=== PATIENT | female | born 1930 | race Caucasian/White ===

== ENCOUNTER 2017-06-30 00:56 | Inpatient (IN) | payer MEDICARE ==
[2017-06-30] VITALS (17 sets, daily range): BP systolic 87–181; BP diastolic 34–72; PULSE 53–68; RESP 1–20; O2SAT 91–98
[~2017-06-30] VITALS: Ht 160 cm; Wt 63.0 kg
[~2017-06-30 00:56] MED LIST: AMLO-39 PO; CALC-743 PO; CARV12.5 PO; CHOL10002 PO; CITA20TA11 PO; FENT1PAT TOPICAL; FURO-128 PO; HYDR2TAB28 PO; HYDRALAZINE PO; LORA0.5T PO; LORA10TA73 PO; LOSA25TA2 PO; MULT-36 PO; OMEG1CAP5 PO; PANT20T PO; POTA20TA7 PO; UBID100C25 PO
--- NOTE | 2017-06-30 01:00 | ED.REPORT ---
HPI-Hip/Pelvis Prob/Inj Date of Service Jun 30, 2017 ED Provider: Roshan Lopez MD The pt is an 87 y/o female with a hx of HTN and spinal stenosis who presents to the ED via EMS from [facility] complaining of right hip pain, onset just prior to arrival. The pt was trying to transfer on to bed side commode when she fell and landed on her right hip. She denies hitting her head, headache, back pain, and abdominal pain. She was given 12mcg fentanyl en route, 4 Zofran and 4 morphine. Nursing Notes Stated Complaint: GLF R HIP PAIN Chief Complaint: Extremity Trauma Nursing Notes Reviewed: Yes Allergies: Coded Allergies: codeine (Verified Allergy, Severe, Hallucinations, 02/24/15) Sulfa (Sulfonamide Antibiotics) (Verified Allergy, Intermediate, Urinary retention, 02/24/15) Scheduled Amlodipine (Norvasc) 5 Mg Tablet 2.5 MG PO BID Calcium Carbonate/Vitamin D3 (Calcium 500 + Vit D 200 Caplet) 1 Each Tablet 1 EACH PO DAILY Carvedilol (Coreg) 12.5 Mg Tablet 12.5 MG PO BID Cholecalciferol (Vitamin D3) 1,000 Unit Tablet 1,000 UNIT PO BID Citalopram (Citalopram) 20 Mg Tablet 20 MG PO AM Fentanyl 12 mcg/hr (Duragesic 12 mcg/hr) 1 Patch Patch 1 PATCH TOPICAL Q3D Furosemide (Lasix) 40 Mg Tablet 40 MG PO DAILY Loratadine (Claritin) 10 Mg Tablet 10 MG PO Daily at 1600 Losartan Potassium (Cozaar) 25 Mg Tablet 50 MG PO BID Multivitamin (Daily Multiple Vitamin) 1 Each Tablet 1 EACH PO DAILY [place]-3 Fatty Acids/Fish Oil (Fish Oil 1,000 mg Capsule) 1 Each Capsule 1 EACH PO DAILY Pantoprazole DR (Protonix) 20 Mg Tablet 20 MG PO BID Potassium Chloride ER (Klor-Con M20) 20 Meq Tabsr 20 MEQ PO DAILY Ubidecarenone (Co Q-10) 100 Mg Capsule 100 MG PO BID Scheduled PRN ([hyDRALazine]) 10 MG TABLET 10 MG PO QID PRN PRN systolic >180, diastloic>95 Hydromorphone (Hydromorphone) 2 Mg Tablet 2 MG PO Q6 PRN PRN For Pain Lorazepam (Lorazepam) 0.5 Mg Tablet 0.5 MG PO Q6 PRN PRN For Anxiety General Time Seen by Provider: 00:59 Chief Complaint Hip injury right Hx Obtained From: Patient Arrived By: Ambulance Onset Occurred: Just prior to arrival Symptom Duration: Since onset Caused by: Fall on ground Location: Hip, R lateral aspect Quality: Painful Radiation: Does not radiate Severity: Current: Severe Severity: Maximum: Severe Recent Healthcare: No recent doctor visit Past Medical History Past Medical History Notes: Code status:DNR/DNI Past Medical History Macular degeneration Spinal stenosis 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 GI: Denies: Abdominal pain Physical Exam Initial Vital Signs Vital Signs (First) Date Time Temp Pulse Resp B/P Pulse Ox O2 Delivery O2 Flow Rate FiO2 06/30/17 00:59 36.7 54 16 169/58 96 Room Air Initial VS: Reviewed, Vital signs normal Head / Eyes: Atraumatic, Normocephalic Neck: Supple, Non-tender, Full range of motion Respiratory: Breath sounds normal, Clear to auscultation, No respiratory distress Cardiovascular: Regular rate & rhythm, Heart sounds normal, Intact distal pulses Abdomen / GI: Soft, Non-tender, No guarding, No rebound, No distention Upper Extremities: Vascular intact, Neuro intact, No swelling, No tenderness Skin: Warm, Dry, No cyanosis Neurologic: Alert, Oriented, Nonfocal Lower Extremity / Pelvis / MS: Atraumatic, No swelling, Neurologic intact, Vascular intact Right Hip: Positive: Tenderness present... (Moderate) Right leg shortened. General/Constitutional: Awake, Alert, Cooperative Interpretation & Diagnostics Lab Results Interpretation Result Diagram: 06/30/175 06/30/17134 Test 06/30/17 01:35 White Blood Count 7.3th/mm3 (3.8-10.1) Red Blood Count 3.93mil/mm3 (3.90-5.20) Hemoglobin 13.1g/dL (12.0-15.6) Hematocrit 38.0% (35.0-46.0) Mean Corpuscular Volume 96.7fL (81-100) Mean Corpuscular Hemoglobin 33.3pg (27.0-35.0) Mean Corpuscular Hemoglobin Concent 34.5% (32.0-37.0) Red Cell Distribution Width 13.0% (12.3-15.4) Platelet Count 236bil/L (150-400) Neutrophils (%) (Auto) 56.8% (40-74) Lymphocytes (%) (Auto) 30.7% (14-46) Monocytes (%) (Auto) 8.9% (4-12) Eosinophils (%) (Auto) 2.7% (0-5) Basophils (%) (Auto) 0.5% (0-3) Hold Purple Top Tube Received (Received) Hold Blue Top Tube Received (Received) Sodium Level 132mEq/L (134-144) Potassium Level 4.6mEq/L (3.5-5.2) Chloride Level 91mEq/L (97-108) Carbon Dioxide Level 28mmol/L (18-29) Blood Urea Nitrogen 33mg/dL (8-27) Creatinine 1.02mg/dL (0.57-1.00) Estimat Glomerular Filtration Rate 73mL/min (>59) Glucose Level 127mg/dL (60-99) Calcium Level 9.6mg/dL (8.5-10.1) Magnesium Level 2.2mg/dL (1.6-2.6) Total Bilirubin 0.5mg/dL (0.0-1.2) Aspartate Amino Transf (AST/SGOT) 16U/L (0-50) Alanine Aminotransferase (ALT/SGPT) 10U/L (0-32) Alkaline Phosphatase 68U/L (25-165) Total Protein 7.3g/dL (6.4-8.4) Albumin 4.4g/dL (3.4-5.0) Hold [place] Top Tube Received (Received) Lab values outside NL range: no clinical significance. X-Ray Chest Interpretation Chest Xray Interpretation: Normal View: Portable, 1 view Interpretation / Wet Read by: Wet read ED physician X-Ray Interpretation Xray Interpretation: Intertrochanteric fracture X-Ray Ordered: Hip right Interpretation / Wet Read by: Wet read ED physician Re-Eval/Medical Decision Med Decision/Clinical Course 87-year-old female with an apparent mechanical fall while transferring with a fractured right hip. She has minimal comorbidities. There is no evidence at this time of infection as a cause of fall. She will be admitted to the hospitalist service with orthopedic surgical consultation. Re-Evaluation/Progress : Time of Eval: 02:59 Re-Evaluation/Progress Note: Rechecked pt. Discussed lab results, imaging results,diagnosis and plan to admit for a surgery tomorrow. Pt understands and agrees with the plan for admission. All questions addressed. Consultation #1: Referral / Consult Name: Xavi Reynolds DO Consulted With: Orthopedic Call Returned at: 01:42 Research Program Manager: Will see patient, Agrees with eval, Agrees with plan Note: Dr. Reynolds recommends pt stay NPO for surgery tomorrow morning. Consultation #2: Referral / Consult Name: Gale Joshi DO Consulted With: Hospitalist Call Returned at: 02:43 Research Program Manager: Will see patient, Agrees with eval, Agrees with plan, Accepts admit Counseled Regarding: Diagnosis, Lab results, Need for admission Discharge & Departure Impression: Primary Impression: Trochanteric fracture of right femur Encounter type: initial encounter Fracture type: closed Qualified Code: S72.101A - Unspecified trochanteric fracture of right femur, initial encounter for closed fracture Disposition: ADMITTED TO HOSPITAL Referrals: Kiara Beckman PA-C (PCP) Scribe Attestation Portions of this note were transcribed by Charlette Santana. I,, personally performed the history,physical exam and medical decision-making;I reviewed and confirmed the accuracy of the information in the transcribed note. Signed by Selene Rahman. 06/30/17 copies to: Kiara Beckman PA-C, Howard L MD Jun 30, 2017 01:00 Charlette Santana Jun 30, 2017 01:06
[2017-06-30 01:55] LABS: BASOPHILS % (AUTO) 0.5 % (0-3); EOSINOPHILS % (AUTO) 2.7 % (0-5); MONOCYTES % (AUTO) 8.9 % (4-12); Mean Corpuscular Hemoglobin 33.3 pg (27.0-35.0); Mean Corpuscular Volume 96.7 fL (81-100); NEUTROPHILS % (AUTO) 56.8 % (40-74); Platelet Count 236 bil/L (150-400)
[2017-06-30] MEDS: fentaNYL-PF 50 mCg/mL 2 mL Inj IVPUSH PRN ×6 (01:55→20:30)
[2017-06-30 02:14] LABS: Magnesium 2.2 mg/dL (1.6-2.6)
[2017-06-30 02:24] LABS: APPEARANCE,URINE CLOUDY (CLEAR,HAZY); COLOR,URINE YELLOW (YELLOW); OCCULT BLOOD,URINE NEGATIVE (NEGATIVE); UROBILINOGEN,URINE NORMAL (NORMAL)
[2017-06-30] MEDS ORDERED: Ondansetron 2 mg/mL 2 mL Inj IVPUSH PRN ×3 (02:45→15:10)
--- NOTE | 2017-06-30 04:02 | PCM.HPMED ---
Subjective Date of Service Jun 30, 2017 Primary Provider: Admitting Physician: Gale Joshi DO Primary Care Physician: Kiara Beckman PA-C Attending Physician: Gale Joshi DO Admit Status: From the Emergency Department Chief Complaint: Right hip pain History of Present Illness: Patient is an 87-year-old female that presented to the emergency room to the emergency department via EMS after falling and hitting her hip. She has a history of hypertension, spinal stenosis. Patient presented to the emergency department after a ground-level fall while getting up to use her bedside commode. She denies hitting her head but admits to falling on her right hip. She was assisted off of the floor. She has a distant history of fractured toe and fractured nose and no known history of osteoporosis. Patient states that she has had previous surgeries and responded poorly to one of the medications used approximately 50 years ago. She states that they "had trouble waking her up" but denies any hyperthermia. Patient is uncertain as to what medication it was. Patient denies headache, sudden change in vision, abdominal pain, numbness, paresthesias Review of Systems: Complete ROS was performed and pertinent positives and negatives included in the history of present illness. All other findings were negative. Allergies Coded Allergies: codeine (Verified Adverse Reaction, Severe, Hallucinations, 06/30/17) Sulfa (Sulfonamide Antibiotics) (Verified Adverse Reaction, Intermediate, Urinary retention, 06/30/17) Home Medications Amlodipine (Norvasc) 5 Mg Tablet 2.5 MG PO BID Calcium Carbonate/Vitamin D3 (Calcium 500 + Vit D 200 Caplet) 1 Each Tablet 1 EACH PO DAILY Carvedilol (Coreg) 12.5 Mg Tablet 12.5 MG PO BID Cholecalciferol (Vitamin D3) 1,000 Unit Tablet 1,000 UNIT PO BID Citalopram (Citalopram) 20 Mg Tablet 20 MG PO AM Fentanyl 12 mcg/hr (Duragesic 12 mcg/hr) 1 Patch Patch 1 PATCH TOPICAL Q3D Furosemide (Lasix) 40 Mg Tablet 40 MG PO DAILY Loratadine (Claritin) 10 Mg Tablet 10 MG PO Daily at 1600 Losartan Potassium (Cozaar) 25 Mg Tablet 50 MG PO BID Multivitamin (Daily Multiple Vitamin) 1 Each Tablet 1 EACH PO DAILY [place]-3 Fatty Acids/Fish Oil (Fish Oil 1,000 mg Capsule) 1 Each Capsule 1 EACH PO DAILY Pantoprazole DR (Protonix) 20 Mg Tablet 20 MG PO BID Potassium Chloride ER (Klor-Con M20) 20 Meq Tabsr 20 MEQ PO DAILY Ubidecarenone (Co Q-10) 100 Mg Capsule 100 MG PO BID ([hyDRALazine]) 10 MG TABLET 10 MG PO QID PRN PRN systolic >180, diastloic>95 Hydromorphone (Hydromorphone) 2 Mg Tablet 2 MG PO Q6 PRN PRN For Pain Lorazepam (Lorazepam) 0.5 Mg Tablet 0.5 MG PO Q6 PRN PRN For Anxiety PMH Macular degeneration Spinal stenosis 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 Nontender sinuses, no nasal discharge. CV: Regular rate and rhythm, no murmurs, gallops, or rubs appreciated RESP: Clear to auscultation bilaterally, no wheezes or rhonchi appreciated ABD: Bowel sounds normal, nondistended, no tenderness to palpation EXT: Trace edema bilateral foot. LYMPH: No cervical lymphadenopathy NEURO: Symmetric face, cranial nerves grossly intact, strength intact bilaterally upper and lower extremities, sensation to light touch intact bilaterally upper and lower extremities. PSYCH: Oriented 4. Linear and appropriate conversation. Skin: Ecchymosis on dorsal aspect of left foot, ecchymosis on right yoo. Lab and Diagnostics Result Diagram: 06/30/1713406/30/17134 Assessment & Plan Patient is an 87-year-old female presenting with right femur fracture post ground level fall 1. Closed right femur fracture, present upon admission and ongoing - X-ray imaging demonstrates closed right femur fracture. Orthopedic consult made, patient will have surgery later today - Nothing by mouth for surgery preparation - Pain control with fentanyl -Continue Coreg, but hold all other home medications 2. Hypertension -Patient has multiple home medications to manage hypertension. With pending surgery, hold all medications other than Coreg. depression - continue citalopram Patient is admitted as inpatient, she is expected to spend greater than 2 midnights Pain Evaluation: Adequate Pain Control GI Prophylaxis: Not indicated VTE Prophylaxis Indicated: Contraindicated (scheduled for surgery today) Resuscitation Status: Limited Interventions (patient would like resuscitation attempted and temporary intubation) Attending Statement The patient was seen and examined together with house staff on 06/30/2017 and I have added additional information to the note above. Lotus Love DO Jun 30, 2017 04:02 Gale Joshi DO Jun 30, 2017 06:52
[2017-06-30] MEDS ORDERED: Polyethylene Glycol (PEG) 17 Gm Powder PO PRN (04:15)
[2017-06-30] MEDS ORDERED: UBID100C27 PO (04:26)
[2017-06-30] MEDS: Dextrose 5% 0.45% NaCl 1,000 ML IV SCH ×3 (04:47→22:43)
--- NOTE | 2017-06-30 06:00 | NUR ---
Admit Patient arrived to floor from ED at 0305. Patient A&OX3. Wilkins catheter patent and draining to gravity. Vitals stable. Peripheral IV in right AC patent. Report given by Kavita METZ. Care continues.
[2017-06-30] MEDS ORDERED: Glycopyrrolate 0.2 MG/ML 1mL Inj ONE (07:11)
[2017-06-30] MEDS ORDERED: fentaNYL-PF 50 mCg/mL 2 mL Inj ONE (07:11)
[2017-06-30] MEDS ORDERED: Phenylephrine/NS 100 mCg/mL 10 mL Syringe IVPUSH ONE (07:11)
[2017-06-30] MEDS ORDERED: Rocuronium 10 mg/mL 5 mL Inj ONE (07:11)
[2017-06-30] MEDS ORDERED: Ondansetron 2 mg/mL 2 mL Inj ONE (07:11)
[2017-06-30] MEDS ORDERED: Dexamethasone 4 mg/mL Inj ONE (07:11)
[2017-06-30] MEDS ORDERED: Neostigmine 1 mg/mL 10 mL Inj ONE (07:11)
[2017-06-30] MEDS ORDERED: Propofol 10,000 mCg/mL 20 mL Inj ONE (07:11)
[2017-06-30] MEDS ORDERED: EPHEDrine/NS 5 mg/mL 5 mL Syringe ONE (07:11)
--- NOTE | 2017-06-30 08:10 | DRSVH ---
PROCEDURE: X-RAY PELVIS W/LAT HIP (RT) ([id number]) INDICATIONS: fall, hip pain TECHNIQUE: AP pelvis with lateral view(s) of the right hip(s). COMPARISON: None. FINDINGS: Bones: Intertrochanteric right femur fracture is noted. Right femur fracture is displaced proximally and is in varus angulation. Soft tissues: The visualized bowel gas pattern is normal. No suspicious soft tissue calcifications. IMPRESSION: Intertrochanteric right femur fracture. Dictated by: Tiffanie Conrad MD, PhD on 06/30/2017 at 8:07 Approved by: Tiffanie Conrad MD, PhD on 06/30/2017 at 8:08
--- NOTE | 2017-06-30 08:28 | DRSVH ---
PROCEDURE: X-RAY CHEST ONE VIEW, PORTABLE ([id number]) INDICATIONS: preop hip TECHNIQUE: One view of the chest was acquired. COMPARISON: [facility], CT, CT CHEST WO CONTRAST, 11/24/2016, 9:52 AM. [facility], CT, CHEST W/O CONTRAST, 09/13/2015, 12:08. [facility], CR, CHEST 1VW (PORTABLE ), 02/24/2015, 13:09. FINDINGS: Surgical changes and devices: None. Lungs and pleura: No pleural effusions or pneumothorax. Lungs are clear no acute opacities. Small n odular densities in the lungs bilaterally not significantly changed compared to prior examinations. Mediastinum: Mediastinal contours appear normal. Heart size is normal. Bones and chest wall: No suspicious bony lesions. Overlying soft tissues appear unremarkable. IMPRESSION: No acute cardiopulmonary disease process. Dictated by: Tiffanie Conrad MD, PhD on 06/30/2017 at 8:25 Approved by: Tiffanie Conrad MD, PhD on 06/30/2017 at 8:27
[2017-06-30] MEDS ORDERED: FENT1PAT6 TRANSDERM (08:31)
[2017-06-30] MEDS ORDERED: ZYL100 PO (08:31)
[2017-06-30] MEDS ORDERED: MULT-1018 PO (08:31)
[2017-06-30] MEDS ORDERED: CALC-72 PO (08:31)
[2017-06-30] MEDS ORDERED: OMEG-38 PO (08:31)
--- NOTE | 2017-06-30 10:28 | PCM.HPANE ---
Patient Data Surgeon Admitting Provider:Gale Joshi DO Attending Provider:Gale Joshi DO Primary Care Physician:Kiara Beckman PA-C Other Provider:Shirley Alvarado Anesthesia Reason for Visit R Intertrochanteric Hip Fracture Ht/WT & BMI Height (Feet): 5 Height (Inches): 3.00 Weight (Kilograms): 58.500 Body Mass Index 22.85 Allergies Coded Allergies: codeine (Verified Adverse Reaction, Severe, Hallucinations, 06/30/17) Sulfa (Sulfonamide Antibiotics) (Verified Adverse Reaction, Intermediate, Urinary retention, 06/30/17) Past Anesthesia History Anesthesia History: Denies:: Anesthesia Reactions Diabetes History Hx Diabetes?: No Current Bedside Blood Glucose: 154 MRSA MRSA: No Medications Active Scripts Potassium Chloride ER (Klor-Con M20)20 Meq Tabsr20 Meq PO DAILY 30 Days Prov:Betancourt,Tahmina L DO 02/27/15 Amlodipine (Norvasc)5 Mg Tablet2.5 Mg PO BID 30 Days Prov:Betancourt,Tahmina L DO 02/27/15 Furosemide (Lasix)40 Mg [place]ukagy03 Mg PO DAILY 30 Days Prov:Betancourt,Tahmina L DO 02/27/15 Carvedilol (Coreg)12.5 Mg Kevnkj05.5 Mg PO BID 30 Days Prov:Betancourt,Tahmina L DO 02/27/[address] (Protonix)20 Mg Mlnqkt37 Mg PO BID 30 Days Prov:Betancourt,Tahmina L DO 02/27/15 Losartan Potassium (Cozaar)25 Mg Hsummr19 Mg PO BID 30 Days Prov:Betancourt,Tahmina L DO 02/27/15 Reported Medications Calcium Carbonate/Vitamin D3 (Calcium 500 + Vit D 200 Tablet)1 Each Tablet1 Each PO 06/30/17 [place]-3/Dha/Epa/Fish Oil (Fish Oil 1,000 mg Softgel)1 Each Capsule1 Each PO 06/30/17 Multivitamin (Multi Vitamin Daily)1 Each Tablet1 Each PO DAILY 30 Days Ref 0 06/30/17 Fentanyl 12.5 mcg/hr Patch 1 Each Patch.td721 Patch TRANSDERM Q3D Ref 0 06/30/17 Allopurinol 100 Mg [id number] Mg PO DAILY Ref 0 06/30/17 Ubidecarenone (Co Q10)100 Mg Rezceie521 Mg PO BID 06/30/17 Lorazepam 0.5 Mg Tablet0.5 Mg PO Q6 PRN For Anxiety 02/24/15 Citalopram 20 Mg Pqkcqf89 Mg PO AM 02/24/15 Discontinued Reported Medications Loratadine (Claritin)10 Mg Vdxrcu83 Mg PO Daily at 1600 02/24/15 Cholecalciferol (Vitamin D3)1,000 Unit Tablet1,000 Unit PO BID 01/17/15 Multivitamin (Daily Multiple Vitamin)1 Each Tablet1 Each PO DAILY 01/17/15 [place]-3 Fatty Acids/Fish Oil (Fish Oil 1,000 mg Capsule)1 Each Capsule1 Each PO DAILY 01/17/15 Ubidecarenone (Co Q-10)100 Mg Tzyxlsi368 Mg PO BID 01/17/15 Calcium Carbonate/Vitamin D3 (Calcium 500 + Vit D 200 Caplet)1 Each Tablet1 Each PO DAILY 01/17/15 Discontinued Scripts Hydromorphone 2 Mg Tablet2 Mg PO Q6 PRN For Pain #15 TABLET Prov:Tahmina Betancourt L DO 02/27/15 Fentanyl 12 mcg/hr (Duragesic 12 mcg/hr)1 Patch Patch1 Patch TOPICAL Q3D #2 Prov:BetancourtTahmina L DO 02/27/15 [hyDRALazine] (Apresoline)10 MG TABLET No Conflict Check10 Mg PO QID PRN systolic >180, diastloic>95 #10 TABLET Prov:Betancourt,Tahmina L DO 02/27/15 History History of ENT Problems?: Yes HEENT History: Positive for:: Glaucoma Sinus Problem Denies:: Cataracts Dysphagia Denture Type: Full- Upper Full- Lower Teeth Condition: No Teeth Hx of Heart Problems?: No Cardiovascular History: Positive for:: Edema (Ankles swelling) Hypertension Denies:: Cardiac Surgery Chest Pain Congestive Heart Failure ("They told me I might have.") Heart Murmur Irregular Heartbeat Pacemaker Thrombophlebitis Hx of Respiratory Problem?: No Respiratory History: Positive for:: Dyspnea Denies:: Asthma COPD Chest Surgery Emphysema Hemoptysis Pneumonia Tuberculosis Hx Neurologic Problems?: Yes Neurological History: Positive for:: Dizziness Denies:: Alzheimer's Disease CVA Dementia Headaches Parkinson's Disease Seizures Hx of GI Problems?: Yes Gastrointestinal History: Positive for:: Hiatal Hernia Hx of Problems?: No Genitourinary History: Positive for:: Urinary Tract Infection Denies:: HX of Hemodialysis Kidney Stones HX of Peritoneal Dialysis: No Female Hx: Denies:: Currently Endometriosis Pelvic Inflammatory Problems with Breasts? Hx Musculoskeletal Problems?: Yes Musculoskeletal History: Denies:: Back Injury Joint Replacement Musculoskeletal Trauma Hx of Psycho/Social Problems?: Yes Psycho Social History: Positive for:: Anxiety (On Ativan as needed) Hx Depression (on Citalopram) Denies:: Bipolar Disorder Suicide Attempt Hx Surgeries?: Yes (Appendectomy, R. carotid endarectomy, cataract repair, back surgery) Hx Any Other Health Problems?: No Other History: Positive for:: Hospitalization Denies:: Cancer Thyroid Disease History Blood Transfusions: Positive for:: Accept Blood Products? Denies:: Blood Transfuse Reaction Blood Transfusions Hx Diabetes: NoBedside Blood Glucose: 154 Hx Alcohol Use: NoHx Substance Use: No Smoking Status: Former Smoker Have You Smoked inLast 12 mo: No Stop/Bang Treated for Sleep Apnea?: No Do You Have a CPAP Machine?: No S-Snoring: Do You Snore Loudly: Yes T-Tired: feel tired, fatigued: No O-Obsered: Observed not breath: No P-Blood Pressure: treated: Yes B- Body Mass Index > 35 kg/m2: No A- Age over 50: Yes N- Neck Large Circumference: No G- Gender Male: No JOSH Total Score: 2 Risk Assessment Category Category 1A: Patient has history of documented sleep apnea, and HAS NOT received any narcotic, sedative or anesthesia administration during this stay. Category 1B: Patient has history of documented sleep apnea, and HAS received any narcotic , sedative or anesthesia administration during this stay Category 2: Patient has SUSPECTED Obstructive Sleep Apnea, and HAS received any narcotic , sedative or anesthesia administration during this stay. Category 3: Patient has SUSPECTED Obstructive Sleep Apnea and HAS NOT received narcotic, sedative or anesthesia administration during this stay. Category 4: Outpatient in Procedural Areas with known sleep apnea or who screen positive for High Risk via the STOP/BANG questionnaire. Exam Exam Vital Signs Vital Signs Date Time Temp Pulse Resp B/P Pulse Ox O2 Delivery O2 Flow Rate FiO2 06/30/17 08:28 57 124/64 06/30/17 05:30 36.6 59 18 181/72 95 Room Air 06/30/17 03:12 53 18 129/51 91 Room Air 06/30/17 03:05 36.8 53 18 179/67 93 Room Air General Appearance: Alert, Oriented X3, Cooperative, No Acute Distress HEENT/AIRWAY: MP 1 Lungs: Normal Air Movement Heart: Regular Rate/Rhythm Meds/Labs/Diagnostics Admission Meds Current Medications Dextrose/Sodium Chloride (D5 1/2 Normal Saline) 1,000 ml @ 100 mls/hr Q10H IV Last administered on 06/30/17t 04:47; Start 06/30/17 at 02:43 Bedside Blood Glucose: 154 Labs Test 06/30/17 01:35 06/30/17 02:16 White Blood Count 7.3th/mm3 (3.8-10.1) Red Blood Count 3.93mil/mm3 (3.90-5.20) Hemoglobin 13.1g/dL (12.0-15.6) Hematocrit 38.0% (35.0-46.0) Mean Corpuscular Volume 96.7fL (81-100) Mean Corpuscular Hemoglobin 33.3pg (27.0-35.0) Mean Corpuscular Hemoglobin Concent 34.5% (32.0-37.0) Red Cell Distribution Width 13.0% (12.3-15.4) Platelet Count 236bil/L (150-400) Neutrophils (%) (Auto) 56.8% (40-74) Lymphocytes (%) (Auto) 30.7% (14-46) Monocytes (%) (Auto) 8.9% (4-12) Eosinophils (%) (Auto) 2.7% (0-5) Basophils (%) (Auto) 0.5% (0-3) Hold Purple Top Tube Received (Received) Hold Blue Top Tube Received (Received) Sodium Level 132mEq/L (134-144) Potassium Level 4.6mEq/L (3.5-5.2) Chloride Level 91mEq/L (97-108) Carbon Dioxide Level 28mmol/L (18-29) Blood Urea Nitrogen 33mg/dL (8-27) Creatinine 1.02mg/dL (0.57-1.00) Estimat Glomerular Filtration Rate 73mL/min (>59) Glucose Level 127mg/dL (60-99) Calcium Level 9.6mg/dL (8.5-10.1) Magnesium Level 2.2mg/dL (1.6-2.6) Total Bilirubin 0.5mg/dL (0.0-1.2) Aspartate Amino Transf (AST/SGOT) 16U/L (0-50) Alanine Aminotransferase (ALT/SGPT) 10U/L (0-32) Alkaline Phosphatase 68U/L (25-165) Total Protein 7.3g/dL (6.4-8.4) Albumin 4.4g/dL (3.4-5.0) Hold [place] Top Tube Received (Received) Urine Color Yellow (YELLOW) Urine Appearance Cloudy (CLEAR,HAZY) Urine pH 6.0 (5.0-8.0) Urine Specific Denio 1.010 (1.003-1.035) Urine Protein Negativemg/dL (NEG,TRACE) Urine Glucose (UA) Negativemg/dL (NEGATIVE) Urine Ketones Negativemg/dL (NEGATIVE) Urine Occult Blood Negative (NEGATIVE) Urine Nitrite Negative (NEGATIVE) Urine Bilirubin Negative (NEGATIVE) Urine Urobilinogen Normalmg/dL (NORMAL) Urine Leukocyte Esterase Small (NEGATIVE) Urine RBC 0-2/hpf (0-2) Urine WBC 0-5/hpf (0-5) Urine Epithelial Cells Occasional/hpf (NONE-MOD) Urine Crystals None seen (NONE SEEN) Urine Bacteria Many/hpf (NONE-FEW) Urine Hyaline Casts None/lpf (NONE) Urine Granular Casts None seen (NONE SEEN) Urine Waxy Casts None seen (NONE SEEN) Urine Red Blood Cell Casts None seen (NONE SEEN) Urine White Blood Cell Casts None seen (NONE SEEN) Urine Mucus None seen (None Seen) Urine Trichomonas None seen (NONE SEEN) Urine Yeast None (NONE SEEN) Urinalysis Comment None Urine Culture Reflexed Indicated Plan Impression Patient chart reviewed, patient interviewed and anesthestic plan with risks, benefits, and alternatives discussed, and informed consent obtained. NPO per Anesth. Guidelines: Yes ASA Physical Status: ASA2 Mod Systemic Disease Anesthetic Plan: GA Bene/Risks/Altern/Consents: Yes HP Complete Prior to Induction: Yes Robert Menezes MD Jun 30, 2017 10:28
--- NOTE | 2017-06-30 12:45 | NUR ---
Transfer to OR Patient picked up by [facility] x 2 @ 1245. Pain controlled, remained NPO except sips w/ po meds x 3. SL x 1. Wilkins emptied before transfer. RA. Son at bedside upon transfer.
[2017-06-30] MEDS ORDERED: Lactated Ringer's 1,000 ML IV SCH (13:04)
[2017-06-30] MEDS ORDERED: Lactated Ringer's 500 ML IV PRN (13:04)
[2017-06-30] MEDS ORDERED: EPHEDrine Sulfate 50 mg/mL Inj IVPUSH PRN (13:05)
[2017-06-30] MEDS ORDERED: HYDROmorphone 1 mg/mL Inj IVPUSH PRN (13:05)
[2017-06-30] MEDS ORDERED: Phenylephrine 10,000 mCg/mL Inj IVPUSH PRN (13:05)
[2017-06-30] MEDS ORDERED: Dexamethasone 4 mg/mL Inj IVPUSH PRN (13:05)
[2017-06-30] MEDS ORDERED: fentaNYL-PF 50 mCg/mL 2 mL Inj IVPUSH PRN (13:05)
[2017-06-30] MEDS ORDERED: Bupivacaine Liposome 1.3% 20 mL Inj ONE (13:12)
[2017-06-30] MEDS ORDERED: Bupivacaine-MPF 0.25% 30 mL Inj INFILTRATE ONE (13:48)
[2017-06-30] MEDS ORDERED: Bupivacaine Liposome 1.3% 20 mL Inj INFILTRATE ONE (13:48)
[2017-06-30] MEDS ORDERED: Sodium Chloride Bacteriostatic 30 mL Inj INJ ONE (13:48)
[2017-06-30] MEDS ORDERED: Sodium Chloride LOK Flush 10 mL Syringe IVFLUSH ONE (14:08)
[2017-06-30] MEDS ORDERED: diphenhydrAMINE 25 mg Capsule PO PRN (15:10)
[2017-06-30] MEDS ORDERED: Magnesium Hydroxide 10 mL Oral Concentration PO PRN (15:10)
[2017-06-30] MEDS: 0.9% Sodium Chloride 1,000 ML IV SCH ×2 (15:10→17:09)
--- NOTE | 2017-06-30 15:25 | PCM.ANEP1 ---
Post Anesthesia PACU Phase 1 Assessment Vital Signs Vital Signs Date Time Temp Pulse Resp B/P Pulse Ox O2 Delivery O2 Flow Rate FiO2 06/30/17 15:20 56 20 92/43 94 Room Air 06/30/17 15:15 60 19 98/43 96 Simple Mask 8 06/30/17 15:09 36.8 63 16 101/34 98 Simple Mask 8 06/30/17 10:53 37.2 62 16 129/63 94 Room Air 06/30/17 08:28 57 124/64 Anesthetic Administered: GA Level of Alertness: Sleepy, easy to arouse Pain: No Pain Scale Score: 5 Nausea or Vomiting: No CV Function & Hydration Stable: Yes Airway Device: None Oxygen Delivery: Simple Mask Lungs: Normal Air Movement PACU Phase 2 Assessment Complications: No Follow up Care: N/A Patient Instructions Provided: N/A Robert Menezes MD Jun 30, 2017 15:25
--- NOTE | 2017-06-30 15:32 | NUR ---
Social Work: Brief Note SW visited patient's room in an attempt to complete initial assessment. Patient is an 87 year old female who is on day 1 of hospitalization for right intertrochanteric hip fracture per H&P. Patient has [facility] [place] Medicare and her PCP is Dr. Kiara Beckman PA-C. EMR reviewed. SW was unable to complete initial assessment. Patient was not in room due to having left for surgery. No family is at bedside. SW will revisit patient at a later time. AD Linder
[2017-06-30] MEDS ORDERED: Acetaminophen IV 1,000 MG in IV Premix 1 EACH IV ONE (15:35)
--- NOTE | 2017-06-30 15:56 | CONS ---
[address] [address] CONSULTATION REPORT PATIENT: MARQUES VELA : 1930 MR#: [id number] ADMIT: 06/30/2017 JOB ID: [id number] DATE OF SERVICE: 06/30/2017 ORTHOPEDIC CONSULTATION: CHIEF COMPLAINT: Right hip pain. HISTORY OF PRESENT ILLNESS: The patient is an 87-year-old female, who normally ambulates with a walker or power chair. Has difficulty with balance and fell while getting up from the bedside commode striking her right hip. She was unable to walk after the fall and had immediate onset of pain which was sharp into the hip. She also complains of weakness in bilateral lower extremities due to longstanding spine problems and spinal stenosis. PAST MEDICAL HISTORY: Is significant for hypertension and chronic pain secondary to her back as well as osteoarthritis and macular degeneration. PAST SURGICAL HISTORY: Appendectomy, tonsillectomy. SOCIAL HISTORY: The patient is an assisted-living resident. Blood pressure 129/63, pulse rate 62, respirations 16, temperature 37.2. She is alert and cooperative, in no acute distress. Her right hip skin is intact. She has pain with any movement of the hip. The right lower extremity is short and externally rotated. Her feet are both warm, pink and well perfused with posterior tibial pulse +2. No calf pain or tenderness. LABORATORY: Hemoglobin 13.1. IMAGING: X-rays demonstrate a right intertrochanteric hip fracture with reverse obliquity and comminution. ASSESSMENT: Right reverse obliquity comminuted intertrochanteric fracture. PLAN: We discussed treatment options for this and she would like to proceed with a right hip nailing and will plan for this later today. Will plan to use a fentanyl DOCTOR OF NURSE ANESTHESIA as the patient has very difficult time with other narcotic pain medications. Plan to use Lovenox for DVT prophylaxis.
--- NOTE | 2017-06-30 16:10 | OP ---
[address] [address] OPERATIVE REPORT PATIENT: MARQUES VELA : 1930 MR#: [id number] ADMIT: 06/30/2017 JOB ID: [id number] DATE OF SURGERY: 06/30/2017 PREOPERATIVE DIAGNOSIS(ES): Right intertrochanteric hip fracture. POSTOPERATIVE DIAGNOSIS(ES): Right intertrochanteric hip fracture. PROCEDURE: Right hip intramedullary nailing. SURGEON: Xavi Reynolds D.O. ANESTHESIA: General. INDICATIONS: The patient is an 87-year-old female who fell when she tipped backwards when trying to get off the bedside commode. She normally ambulates with a walker or uses a power chair and has had problems with balance and dizziness. She was unable to ambulate after the fall. We discussed treatment options for this and she wished to proceed with a right hip intramedullary nailing, which was my recommendation. We discussed the risks, benefits, and possible complications of surgery. All questions were answered and she wished to proceed. PROCEDURE IN DETAIL: The patient was brought to the operating room. She was given a preoperative antibiotic and general anesthetic. She was placed onto the fracture table and the fracture was reduced with the combination of traction, internal rotation, abduction. The right lower extremity was sterilely prepped and draped. An incision was made about three fingerbreadths above the level of the greater trochanter in line with the femur. Dissection was carefully carried through subcutaneous tissue and the iliotibial band was incised in line with the skin incision. A guidewire was placed into the tip of the trochanter and then advanced into the intramedullary femur. This was then over-reamed with the opening reamer and then a ball-tipped guidewire was placed into the femur. This was reamed up to 13.5 mm and placed a 380 x 12 mm 130 degree Synthes TFNA nail. There was some displacement of the calcar and an incision was made for the lag screw insertion and I placed a bone hook onto the calcar in order to help reduce the fracture. However, it did not reduce very well, but with some pressure over the lateral femur, the fracture reduced reasonably well and I placed a guide pin for a lag screw into the center-center position of the femoral head. The lag screw was then reamed and inserted and had excellent fixation. A set screw was placed and then backed off by half a turn. I then placed two distal locks. I felt that the fracture had reverse obliquity and best served with a long nail and distal interlocks. Using a perfect bear river type technique, these were placed percutaneously, the first having somewhat marginal fixation. Therefore, I placed a second distal lateral locking screw having good fixation in her fairly poor osteoporotic bone. The wounds were then irrigated and closed with 0 Vicryl to close the fascia and 2-0 to close the subcu. The skin was closed with jarod. Fluoroscopy was used to confirm final placement and sterile dressings were applied. The patient tolerated the procedure well. Blood loss was 180 cc. POSTOPERATIVE PROTOCOL: Have the patient remain partial weightbearing on the right lower extremity for a period of six weeks and will plan to use Lovenox for DVT prophylaxis.
--- NOTE | 2017-06-30 16:57 | NUR ---
spiritual care: pt request brief conversational visit and caring shipping packer visit. pt reported getting better, being woozy with medications and that she is appreciative of her family and a medical plan. anticipating healing process. Addendum: 06/30/17 at 1701 by MORE BENNETT CM above note correction: pt did not receive caring shipping packer visit, rather was agreeable for eucharistic can slider visit (yazdanism) tomorrow following her surgery.
[2017-06-30] MEDS: Sodium Chloride LOK Flush 10 mL Syringe IV SCH (17:09)
--- NOTE | 2017-06-30 17:19 | NUR ---
Return from OR Patient transported back to room at 1615, O x 3, SL, 2L NC, vitals stable. Right hip dressing c/d/i, ice on site, NS @ 100ml/hr started, fentanyl patch placed on left posterior shoulder area. Pain 2/10. Son at the bedside. Tolerated clear liquids w/ no nausea, currently ordering a light dinner.
[2017-06-30] MEDS: Alum-Mag Hydrox-Simeth 30 mL Suspension PO PRN (20:28)
[2017-06-30] MEDS: Senna-Docusate 8.6-50 mg Tablet PO SCH (20:30)
[2017-06-30] MEDS ORDERED: CeFAZolin Inj 2 GM in IV Premix 1 EACH IV SCH (22:00)
[2017-06-30] MEDS: CeFAZolin Inj 2 GM in IV Premix 1 EACH IV SCH (23:03)
[2017-07-01 00:15] VITALS: BP 120/57; PULSE 65; RESP 18; O2SAT 93
[2017-07-01] MEDS: Sodium Chloride LOK Flush 10 mL Syringe IV SCH ×3 (00:30→16:30)
--- NOTE | 2017-07-01 03:34 | NUR ---
Activity Pt with many questions regarding discharge planning. Answered what could and assured SS would see her and be able to answer more. Pt rates pain is 5-6/10, rec'd IV fentanyl per prn orders. Repositioning done with rounds. Wilkins catheter patent to gravity, Pt passing gas. Refused to keep scd's on but able to move left leg and right feet. +CMS. Call light in reach, bed in low. Care continues
[2017-07-01] MEDS: 0.9% Sodium Chloride 1,000 ML IV SCH (04:06)
[2017-07-01 04:30] VITALS: BP 111/57; PULSE 61; RESP 18; O2SAT 97
[2017-07-01] MEDS: CeFAZolin Inj 2 GM in IV Premix 1 EACH IV SCH ×3 (05:30→21:32)
[2017-07-01 06:19] LABS: BASOPHILS % (AUTO) 0.1 % (0-3); EOSINOPHILS % (AUTO) 0 % (0-5); MONOCYTES % (AUTO) 13.7 % (4-12); Mean Corpuscular Hemoglobin 33.9 pg (27.0-35.0); Mean Corpuscular Volume 99.1 fL (81-100); NEUTROPHILS % (AUTO) 77.1 % (40-74); Platelet Count 141 bil/L (150-400)
[2017-07-01] MEDS: fentaNYL-PF 50 mCg/mL 2 mL Inj IVPUSH PRN (08:22)
[2017-07-01] MEDS: Senna-Docusate 8.6-50 mg Tablet PO SCH ×2 (08:23→21:31)
[2017-07-01 08:51] VITALS: BP 115/60; PULSE 62; RESP 16; O2SAT 94
--- NOTE | 2017-07-01 09:12 | PCM.PNMED ---
Subjective Date of Service Jul 01, 2017 Subjective Denies any new issues/complaints. no CP, SOB, n/v Exam Vital Signs Vital Sign - Last Date Time Temp Pulse Resp B/P Pulse Ox O2 Delivery O2 Flow Rate FiO2 07/01/17 08:51 36.7 62 16 115/60 94 Room Air 06/30/17 16:00 2 Intake and Output 06/30/17 06/30/17 07/01/17 Cumulative From/Thru 15:00 23:00 07:00 06/30/17 00:59 - 07/01/17 06:16 Intake Total 500 ml 1212 ml 1136 ml 3005 ml Output Total 230 ml 1100 ml 1680 ml Balance 270 ml 112 ml 1136 ml 1325 ml Intake Oral 410 ml 410 ml IV Total 500 ml 802 ml 1136 ml 2595 ml Output Urine Total 50 ml 1100 ml 1500 ml Estimated Blood Loss 180 ml 180 ml # Bowel Movements 0 0 General: Alert, Cooperative, No Acute Distress Head: Normal Eyes: Scleral Anicteric Nose: Mucous Membr Moist/[place] Mouth: Mucous Membr Moist/[place] Neck: Supple Chest & Lungs: Chest Wall Normal, Clear to auscultation & percussion Cardiovascular: Regular Rate/Rhythm Pulses: NL carotid, radial, femoral, DP, PT Abdomen: Non-tender, Non-distended, Normoactive bowel tones, Soft Extremities: No cyanosis/clubbing/edma bilat Neurological: Grossly Neurologically Intact, Normal Speech IVs and Medications Medications Reviewed: Medications were reviewed in detail Lab and Diagnostics Result Diagram: 07/01/1751907/01/17519 Assessment & Plan 87-year-old female with history of hypertension presenting with right femur fracture post ground level fall # Acute right intertrochanteric hip fracture post ground level fall, present on admission. - Post right hip intramedullary nailing on 06/30/17 - Appreciate ortho consult. Will followup with recs - Continue with supportive care including IV Fentanyl prn - Further mobilization and PT per ortho recs # History of hypertension. Currently stable - Continue with home dose Coreg - Continue to hold Amlodipine, Lasix, and Losartan given BP currently stable - Resume home BP meds if BP starts to rise # History of depression, presumed stable - Continue home dose Citalopram # Acute hyponatremia. Present on admission. Ongoing - Gentle IVF and followup # Acute post-op anemia. - No indication for transfusion at this time - Followup # Acute vs possible chronic kidney injury. Present on admission. Ongoing and worsening - Avoid nephrotoxic meds - IVF and followup Dispo: Likely SNF in 2-3 days GI Prophylaxis: Not indicated VTE Mechanical Devices: Intermittant Pneumatic CD Resuscitation Status: Limited Interventions (patient would like resuscitation attempted and temporary intubation) Chemo Lockwood Jul 01, 2017 09:12
[2017-07-01] MEDS ORDERED: 0.9% Sodium Chloride 1,000 ML IV ONE (09:15)
--- NOTE | 2017-07-01 11:02 | PCM.PNORTH ---
Subjective Date of Service: Jul 01, 2017 Visit Information: Reason for Visit R Intertrochanteric Hip Fracture Surgery/Surgery Date IM NAILING RIGHT HIP 06/30/17 Post-Op Day # Date of Admission: Jun 30, 2017 at 02:08 Hospital Day # Subjective Patient is status post day #1 right hip IM nail. States her pain is well controlled, she actually feels a little sleepy and states that her fentanyl patches usually just 12 g but currently on the 25 and would like this changed if possible. She states her pain is well controlled and she has been living at [facility] and would like to return to there in the next day or 2 if possible. She also states that she has a electric wheelchair that she will be able to utilize with the current partial weightbearing status and feels like she will do well on that. Postop General: No Shortness of Breath, No Chest Pain Objective Exam Objective Patient is alert and oriented 3. Answering questions appropriately. Patient is sitting up in the bed and not in acute distress today. Dressing is clean dry and intact. Calf is soft and nontender. Sensation and pulses intact, patient able to wiggle toes. Vital Signs and I/O Vital Sign - Last Date Time Temp Pulse Resp B/P Pulse Ox O2 Delivery O2 Flow Rate FiO2 07/01/17 08:51 36.7 62 16 115/60 94 Room Air 06/30/17 16:00 2 Intake and Output 06/30/17 06/30/17 07/01/17 Cumulative From/Thru 14:59 22:59 06:59 06/30/17 00:59 - 07/01/17 06:16 Intake Total 500 ml 1212 ml 1136 ml 3005 ml Output Total 230 ml 1100 ml 1680 ml Balance 270 ml 112 ml 1136 ml 1325 ml Intake Oral 410 ml 410 ml IV Total 500 ml 802 ml 1136 ml 2595 ml Output Urine Total 50 ml 1100 ml 1500 ml Estimated Blood Loss 180 ml 180 ml # Bowel Movements 0 0 Lab & Micro Results Laboratory Tests Test 07/01/17 05:20 White Blood Count 8.7th/mm3 (3.8-10.1) Red Blood Count 2.24mil/mm3 (3.90-5.20) Hemoglobin 7.6g/dL (12.0-15.6) Hematocrit 22.2% (35.0-46.0) Mean Corpuscular Volume 99.1fL (81-100) Mean Corpuscular Hemoglobin 33.9pg (27.0-35.0) Mean Corpuscular Hemoglobin Concent 34.2% (32.0-37.0) Red Cell Distribution Width 12.9% (12.3-15.4) Platelet Count 141bil/L (150-400) Neutrophils (%) (Auto) 77.1% (40-74) Lymphocytes (%) (Auto) 8.8% (14-46) Monocytes (%) (Auto) 13.7% (4-12) Eosinophils (%) (Auto) 0% (0-5) Basophils (%) (Auto) 0.1% (0-3) Sodium Level 131mEq/L (134-144) Potassium Level 4.2mEq/L (3.5-5.2) Chloride Level 94mEq/L (97-108) Carbon Dioxide Level 24mmol/L (18-29) Blood Urea Nitrogen 30mg/dL (8-27) Creatinine 1.16mg/dL (0.57-1.00) Estimat Glomerular Filtration Rate 63mL/min (>59) Glucose Level 159mg/dL (60-99) Calcium Level 8.1mg/dL (8.5-10.1) Microbiology 06/30/17 Urine Culture - Preliminary, Resulted Result Diagram: 07/01/1751907/01/17519 Assessment & Plan Impression Patient is status post day #1 right hip IM nail. Patient's pain is controlled, doing well with exception of blood levels which hemoglobin is 7.6, hematocrit 22.2. Problems: Plan Discussed with hospitalist that hemoglobin is low and we will either need to watch through this afternoon or possibly give blood products today as her levels are quite low. Also discussed changing the fentanyl patch to something lower and she feels oversedated. Patient will remain partial weightbearing of up to 50% of her weight. She will continue to work with physical therapy for gait training. She will also be able to utilize her electric wheelchair when she returns to [facility] which may improve her discharge disposition. Patient will continue Lovenox 40 mg subcutaneous daily 3 weeks, then aspirin 325 mg twice a day for 3 more weeks for DVT prophylaxis. Anticipated that patient will be able to be discharged back to [facility] in 1-2 days once her blood levels are stabilized and able to do well with physical therapy with a walker or a motorized wheelchair. Resuscitation Status: Limited Interventions (patient would like resuscitation attempted and temporary intubation) Demarco Ziegler PA-C Jul 01, 2017 11:02
[2017-07-01] MEDS ORDERED: HYDROcodone-APAP 5-325 mg Tablet PO PRN (11:40)
[2017-07-01 12:11] VITALS: BP 123/64; PULSE 56; RESP 18; O2SAT 96
[2017-07-01] MEDS: Alum-Mag Hydrox-Simeth 30 mL Suspension PO PRN ×2 (14:45→18:30)
--- NOTE | 2017-07-01 15:57 | NUR ---
Social Work: Initial Assessment/Multi-Disciplinary Rounds D: EMR reviewed. Please see Initial Assessment linked to this note for more information. Pt is an 87 y/o female [place] with a readmit risk score of 3 for right hip fracture per H&P. Pt's insurance is [employer] and [facility]. PCP is MD Alexandre. Pt discussed in multidisciplinary rounds, pt will return to SNF for skilled rehab. SNF order acknowledged. PT recommending SNF at this time. Case screens in for RCS report, report # SW met with pt at bedside to conduct initial assessment. Pt was alert and oriented x3. Pt has macular degeneration and poor eyesight. SW explained role and wrote phone number on white board. SW provided [facility] Discharge Planning Checklist and encouraged pt to contact for any discharge planning questions, explained that the written resources are for pt's son. Pt resides at [facility] as a LTC patient. Pt uses a walker, cane, or wheelchair at baseline. Pt has history of HH with [facility] . Pt has never been to another facility. Pt has no LTC or VA benefits. Pt has no DPOA on file but this is requested. Pt has completed this, pt's DPOA and designated d/c planning person is son Jude Richardson. [facility] asked to give [facility] access. T/C to Jude Richardson regarding discharge plan. Explained that pt will discharge back to [facility] under skilled rehab. Bill is agreeable to plan. Oriented Bill to [facility] d/c planning checklist and phone number on whiteboard. Pt likely to d/c back to [facility] with [facility] to follow, returning under [facility] after insurance authorization is obtained. Paperwork in chart. Assessment: Pt who is not independent at baseline and who requires SNF at discharge. Plan: Pt likely to d/c back to [facility] with [facility] to follow, returning under [facility] after insurance authorization is obtained. Paperwork in chart. AD Sosa Addendum: 07/01/17 at 1601 by OANH MARTINEZ SS Amended: Links added. Addendum: 07/01/17 at 1603 by OANH MARTINEZ SS Report # not listed in above note. Report number is [id number]
--- NOTE | 2017-07-01 18:16 | NUR ---
"dizziness" earlier in shift pt c/o dizziness, She had received 25mcg IV Fentanyl prior and also had on 25mcg Fent Patch, about an hour after patch was removed and replaced with 12mcg patch the dizziness subsided. Was given Ultram later on and did not c/o dizziness afterwards either
[2017-07-01 19:54] VITALS: BP 120/53; PULSE 63; RESP 18; O2SAT 93
[2017-07-01] MEDS: LORazepam 0.5 mg Tablet PO PRN (21:31)
[2017-07-01] MEDS: Pantoprazole 20 mg ER24 Tablet PO SCH (21:31)
[2017-07-02] MEDS: Sodium Chloride LOK Flush 10 mL Syringe IV SCH ×4 (00:21→23:59)
[2017-07-02 05:00] VITALS: BP 115/56; PULSE 56; RESP 16; O2SAT 92
[2017-07-02] MEDS: CeFAZolin Inj 2 GM in IV Premix 1 EACH IV SCH ×3 (05:00→23:59)
[2017-07-02 05:34] LABS: BASOPHILS % (AUTO) 0.1 % (0-3); EOSINOPHILS % (AUTO) 1.1 % (0-5); MONOCYTES % (AUTO) 16.1 % (4-12); Mean Corpuscular Hemoglobin 33.8 pg (27.0-35.0); NEUTROPHILS % (AUTO) 64.6 % (40-74); Platelet Count 139 bil/L (150-400)
--- NOTE | 2017-07-02 06:01 | NUR ---
Urinary Wilkins d/c'd on day shift yesterday. Patient unable to void on her own. Order in place to re-cath if unable to void after catheter removal. Bladder scan showed 400 cc in bladder. I&O performed and 700cc of candice urine obtained.
[2017-07-02] MEDS: Polyethylene Glycol (PEG) 17 Gm Powder PO PRN (08:41)
[2017-07-02] MEDS: Pantoprazole 20 mg ER24 Tablet PO SCH ×2 (08:42→19:53)
[2017-07-02] MEDS: Senna-Docusate 8.6-50 mg Tablet PO SCH ×2 (08:44→19:53)
--- NOTE | 2017-07-02 10:00 | PCM.PNMED ---
Subjective Date of Service Jul 02, 2017 Subjective Denies any new issues/complaints. no CP, SOB, n/v Exam Vital Signs Vital Sign - Last Date Time Temp Pulse Resp B/P Pulse Ox O2 Delivery O2 Flow Rate FiO2 07/02/17 05:00 37.4 56 16 115/56 92 Room Air 06/30/17 16:00 2 Intake and Output 07/01/17 07/01/17 07/02/17 Cumulative From/Thru 15:00 23:00 07:00 06/30/17 00:59 - 07/02/17 06:27 Intake Total 500 ml 822 ml 1221 ml 5548 ml Output Total 300 ml 300 ml 700 ml 2980 ml Balance 200 ml 522 ml 521 ml 2568 ml Intake Oral 500 ml 822 ml 420 ml 2152 ml IV Total 801 ml 3396 ml Output Urine Total 300 ml 300 ml 700 ml 2800 ml Estimated Blood Loss 180 ml # Bowel Movements 0 0 0 0 Exam General: Alert, Cooperative, No Acute Distress Head: Normal Eyes: Scleral Anicteric Nose: Mucous Membr Moist/[place] Mouth: Mucous Membr Moist/[place] Neck: Supple Chest & Lungs: Chest Wall Normal, Clear to auscultation bilat Cardiovascular: Regular Rate/Rhythm Pulses: NL carotid, radial Abdomen: Non-tender, Non-distended, Normoactive bowel tones, Soft Extremities: No cyanosis/clubbing/edema bilat Neurological: Grossly Neurologically Intact, Normal Speech IVs and Medications Medications Reviewed: Medications were reviewed in detail Lab and Diagnostics Result Diagram: 07/02/1750907/02/17509 Assessment & Plan 87-year-old female with history of hypertension presenting with right femur fracture post ground level fall # Acute right intertrochanteric hip fracture post ground level fall, present on admission. - Post right hip intramedullary nailing on 06/30/17 - Appreciate ortho consult. Will followup with recs - Continue with supportive care - Further mobilization and PT per ortho recs - Continue Lovenox 40 mg subcutaneous daily 3 weeks, then aspirin 325 mg twice a day for 3 more weeks for DVT prophylaxis # Acute post-op anemia. - No indication for transfusion at this time given Hgb still not less than 7 and patient otherwise asymptomatic - Followup - Will consider one PRBC transfusion if she becomes symptomatic with current h/ h otherwise continue to follow. # Acute vs possible chronic kidney injury. Present on admission. Ongoing - Avoid nephrotoxic meds - IVF and followup # History of hypertension. Currently stable - Continue with home dose Coreg - Continue to hold Amlodipine, Lasix, and Losartan given BP currently stable - Resume home BP meds if BP starts to rise # History of depression, presumed stable - Continue home dose Citalopram # Acute hyponatremia. Present on admission. Ongoing - Gentle IVF and followup Dispo: Likely SNF in 1-2 days GI Prophylaxis: Not indicated VTE Mechanical Devices: Intermittant Pneumatic CD Resuscitation Status: Limited Interventions (patient would like resuscitation attempted and temporary intubation) Chemo Lockwood Jul 02, 2017 10:00
--- NOTE | 2017-07-02 10:59 | NUR ---
HALF-WAY TRANSFER : Patient comes from [facility] and is likely to return when ready, gave access and faxed facesheet to [facility] per HOSPICE REGISTERED NURSE and MD order
[2017-07-02] MEDS: LORazepam 0.5 mg Tablet PO PRN (12:27)
[2017-07-02 13:47] VITALS: BP 89/43; PULSE 60; RESP 18; O2SAT 98
--- NOTE | 2017-07-02 14:29 | PCM.PNORTH ---
Subjective Date of Service: Jul 02, 2017 Visit Information: Reason for Visit R Intertrochanteric Hip Fracture Surgery/Surgery Date IM NAILING RIGHT HIP 06/30/17 Post-Op Day # 2 Date of Admission: Jun 30, 2017 at 02:08 Hospital Day # Subjective Patient states she is having very little pain at this time. She states she thinks she had physical therapy earlier this morning but cannot recall when or how it went. Postop General: No Shortness of Breath, No Chest Pain Objective Exam Objective Patient sitting up in bed Vital Signs and I/O Vital Sign - Last Date Time Temp Pulse Resp B/P Pulse Ox O2 Delivery O2 Flow Rate FiO2 07/02/17 13:47 36.6 60 18 89/43 98 Room Air 06/30/17 16:00 2 Intake and Output 07/01/17 07/01/17 07/02/17 Cumulative From/Thru 15:00 23:00 07:00 06/30/17 00:59 - 07/02/17 06:27 Intake Total 500 ml 822 ml 1221 ml 5548 ml Output Total 300 ml 300 ml 700 ml 2980 ml Balance 200 ml 522 ml 521 ml 2568 ml Intake Oral 500 ml 822 ml 420 ml 2152 ml IV Total 801 ml 3396 ml Output Urine Total 300 ml 300 ml 700 ml 2800 ml Estimated Blood Loss 180 ml # Bowel Movements 0 0 0 0 Lab & Micro Results Laboratory Tests Test 07/02/17 05:10 White Blood Count 7.6th/mm3 (3.8-10.1) Red Blood Count 2.07mil/mm3 (3.90-5.20) Hemoglobin 7.0g/dL (12.0-15.6) Hematocrit 20.5% (35.0-46.0) Mean Corpuscular Volume 99.0fL (81-100) Mean Corpuscular Hemoglobin 33.8pg (27.0-35.0) Mean Corpuscular Hemoglobin Concent 34.1% (32.0-37.0) Red Cell Distribution Width 12.9% (12.3-15.4) Platelet Count 139bil/L (150-400) Neutrophils (%) (Auto) 64.6% (40-74) Lymphocytes (%) (Auto) 17.8% (14-46) Monocytes (%) (Auto) 16.1% (4-12) Eosinophils (%) (Auto) 1.1% (0-5) Basophils (%) (Auto) 0.1% (0-3) Sodium Level 133mEq/L (134-144) Potassium Level 4.5mEq/L (3.5-5.2) Chloride Level 98mEq/L (97-108) Carbon Dioxide Level 24mmol/L (18-29) Blood Urea Nitrogen 28mg/dL (8-27) Creatinine 1.02mg/dL (0.57-1.00) Estimat Glomerular Filtration Rate 73mL/min (>59) Glucose Level 115mg/dL (60-99) Calcium Level 7.7mg/dL (8.5-10.1) Microbiology 06/30/17 Urine Culture - Final, Complete Mixed Urogenital Shruti Result Diagram: 07/02/17 0510 07/02/17 05 General Appearance: Alert, Cooperative, No Acute Distress Extremities: Distal Pulses Palpable, No Compartment Syndrom Noted, Tenderness/ Swelling Noted Postop Sensory Motor: Distal Motor Intact, Movement in Toes, Distal Sensation Intact, NVI Distally SURGICAL WOUND : Wound Location/Description Dressings c/d/i, mildly saturated Activity: Ambulate with PT (50% WB c FWW) Assessment & Plan Impression Patient is status post day #2 right hip IM nail. Patient's pain is controlled, doing well with exception of blood levels which hemoglobin is 7.0, hematocrit 20.5. Problems: Plan Will continue to monitor H&H, currently patient is asymptomatic. Patient will remain partial weightbearing of up to 50% of her weight. She will continue to work with physical therapy for gait training. She will also be able to utilize her electric wheelchair when she returns to [facility] which may improve her discharge disposition. Patient will continue Lovenox 40 mg subcutaneous daily 3 weeks, then aspirin 325 mg twice a day for 3 more weeks for DVT prophylaxis. Anticipated that patient will be able to be discharged back to [facility] in 1-2 days once her blood levels are stabilized and able to do well with physical therapy with a walker or a motorized wheelchair. Resuscitation Status: Limited Interventions (patient would like resuscitation attempted and temporary intubation) Aline Shaikh PA-C Jul 02, 2017 14:29
--- NOTE | 2017-07-02 18:00 | NUR ---
urinary retention pt has been unable to void since catheter removed, has not even had the urge to void, I and O cath returned 500cc
[2017-07-02 20:55] VITALS: BP 107/53; PULSE 58; RESP 18; O2SAT 92
[2017-07-03] VITALS (9 sets, daily range): BP systolic 93–125; BP diastolic 51–67; PULSE 54–64; RESP 15–18; O2SAT 92–94
[2017-07-03 06:08] LABS: Mean Corpuscular Hemoglobin 34.1 pg (27.0-35.0)
--- NOTE | 2017-07-03 06:48 | NUR ---
Urinary Retention Bladder scan amt 219ml. In and out cath total 350ml.
[2017-07-03] MEDS ORDERED: Furosemide 10 mg/mL 2 mL Inj IV ONE ×4 (07:50→19:00)
[2017-07-03] MEDS: Sodium Chloride LOK Flush 10 mL Syringe IV SCH ×3 (08:53→23:59)
[2017-07-03] MEDS: Pantoprazole 20 mg ER24 Tablet PO SCH ×2 (08:54→20:14)
--- NOTE | 2017-07-03 09:23 | PCM.PNMED ---
Subjective Date of Service Jul 03, 2017 Subjective Denies any new issues/complaints other than feeling tired and a little sleepy. no CP, SOB, n/v Exam Vital Signs Vital Sign - Last Date Time Temp Pulse Resp B/P Pulse Ox O2 Delivery O2 Flow Rate FiO2 07/03/17 08:09 37.1 55 18 99/54 94 Room Air 06/30/17 16:00 2 Intake and Output 07/02/17 07/02/17 07/03/17 Cumulative From/Thru 15:00 23:00 07:00 06/30/17 00:59 - 07/03/17 06:49 Intake Total 905 ml 6453 ml Output Total 500 ml 350 ml 3830 ml Balance 405 ml -350 ml 2623 ml Intake Oral 905 ml 3057 ml IV Total 3396 ml Output Urine Total 500 ml 350 ml 3650 ml Estimated Blood Loss 180 ml # Bowel Movements 0 0 Exam General: Alert, Cooperative, No Acute Distress Head: Normal Eyes: Scleral Anicteric Nose: Mucous Membr Moist/[place] Mouth: Mucous Membr Moist/[place] Neck: Supple Chest & Lungs: Chest Wall Normal, Clear to auscultation bilat Cardiovascular: Regular Rate/Rhythm Pulses: NL carotid, radial Abdomen: Non-tender, Non-distended, Normoactive bowel tones, Soft Extremities: No cyanosis/clubbing/edema bilat Neurological: Grossly Neurologically Intact, Normal Speech IVs and Medications Medications Reviewed: Medications were reviewed in detail Lab and Diagnostics Result Diagram: 07/03/17 0642 07/03/17 0525 X-Rays, CTs and MRIs Date of Service: 06/30/17 0102 PROCEDURE: X-RAY PELVIS W/LAT HIP (RT) ([id number]) IMPRESSION: Intertrochanteric right femur fracture. Dictated by: Tiffanie Conrad MD, PhD on 06/30/2017 at 8:07 Approved by: Tiffanie Conrad MD, PhD on 06/30/2017 at 8:08 Date of Service: 06/30/17 0121 PROCEDURE: X-RAY CHEST ONE VIEW, PORTABLE ([id number]) IMPRESSION: No acute cardiopulmonary disease process. Dictated by: Tiffanie Conrad MD, PhD on 06/30/2017 at 8:25 Approved by: Tiffanie Conrad MD, PhD on 06/30/2017 at 8:27 Assessment & Plan 87-year-old female with history of hypertension presenting with right femur fracture post ground level fall # Acute right intertrochanteric hip fracture post ground level fall, present on admission. - Post right hip intramedullary nailing on 06/30/17 - Appreciate ortho consult. Will followup with recs - Continue with supportive care - Further mobilization and PT per ortho recs - Continue Lovenox 40 mg subcutaneous daily 3 weeks, then aspirin 325 mg twice a day for 3 more weeks for DVT prophylaxis # Acute post-op anemia. Worsening - Transfuse 2 units PRBC today given Hgb now less than 7 and patient a little symptomatic with feeling tired - Followup repeat labs - Lasix 10mg IV after each unit of PRBC # Acute vs possible chronic kidney injury. Present on admission. - Resolved with IVF - Avoid nephrotoxic meds # History of hypertension. Currently hypotensive - Continue with home dose Coreg with holding parameters - Continue to hold Amlodipine, Lasix, and Losartan given BP currently stable - Resume home BP meds if BP starts to rise - PRBC transfusion as noted above # History of depression, presumed stable - Continue home dose Citalopram # Acute hyponatremia. Present on admission. Ongoing - Followup post transfusion Dispo: Likely SNF in 1-2 days pending stable h/h GI Prophylaxis: Not indicated VTE Mechanical Devices: Intermittant Pneumatic CD Resuscitation Status: Limited Interventions (patient would like resuscitation attempted and temporary intubation) Chemo Lockwood Jul 03, 2017 09:23
--- NOTE | 2017-07-03 10:04 | PCM.PNORTH ---
Subjective Date of Service: Jul 03, 2017 Visit Information: Reason for Visit R Intertrochanteric Hip Fracture Surgery/Surgery Date IM NAILING RIGHT HIP 06/30/17 Post-Op Day # 3 Date of Admission: Jun 30, 2017 at 02:08 Hospital Day # Subjective Patient does not remember me from previous visits. She states she is "not feeling well" and is getting a transfusion later today. She denies pain at this time. Postop General: No Shortness of Breath, No Chest Pain Pain Management: PO Objective Exam Objective Patient sitting up in bed eating breakfast Vital Signs and I/O Vital Sign - Last Date Time Temp Pulse Resp B/P Pulse Ox O2 Delivery O2 Flow Rate FiO2 07/03/17 08:09 37.1 55 18 99/54 94 Room Air 06/30/17 16:00 2 Intake and Output 07/02/17 07/02/17 07/03/17 Cumulative From/Thru 15:00 23:00 07:00 06/30/17 00:59 - 07/03/17 06:49 Intake Total 905 ml 6453 ml Output Total 500 ml 350 ml 3830 ml Balance 405 ml -350 ml 2623 ml Intake Oral 905 ml 3057 ml IV Total 3396 ml Output Urine Total 500 ml 350 ml 3650 ml Estimated Blood Loss 180 ml # Bowel Movements 0 0 Lab & Micro Results Laboratory Tests Test 07/03/17 05:25 07/03/17 06:42 White Blood Count 7.1th/mm3 (3.8-10.1) Red Blood Count 1.76mil/mm3 (3.90-5.20) Hemoglobin 6.0g/dL (12.0-15.6) 6.3g/dL (12.0-15.6) Hematocrit 17.5% (35.0-46.0) 19.2% (35.0-46.0) Mean Corpuscular Volume 99fL (81-100) Mean Corpuscular Hemoglobin 34.1pg (27.0-35.0) Mean Corpuscular Hemoglobin Concent 34.3% (32.0-37.0) Red Cell Distribution Width 12.8% (12.3-15.4) Platelet Count 140bil/L (150-400) Sodium Level 130mEq/L (134-144) Potassium Level 4.6mEq/L (3.5-5.2) Chloride Level 97mEq/L (97-108) Carbon Dioxide Level 22mmol/L (18-29) Blood Urea Nitrogen 24mg/dL (8-27) Creatinine 0.87mg/dL (0.57-1.00) Estimat Glomerular Filtration Rate 88mL/min (>59) Glucose Level 114mg/dL (60-99) Calcium Level 7.5mg/dL (8.5-10.1) Microbiology 06/30/17 Urine Culture - Final, Complete Mixed Urogenital Shruti Result Diagram: 07/03/17 0642 07/03/17 0525 General Appearance: Alert, Oriented X3, Cooperative, No Acute Distress Extremities: Distal Pulses Palpable, No Compartment Syndrom Noted, Thigh & Calf Soft/Nontender Postop Sensory Motor: Distal Motor Intact, Movement in Toes, Distal Sensation Intact, NVI Distally SURGICAL WOUND : Wound Location/Description Dressings appear mildly saturated but are intact Activity: Ambulate with PT (50% WB c FWW) Assessment & Plan Impression POD #3 right hip IM nail. Patient's pain is controlled, will receive blood transfusion later today for post-operative anemia. Problems: Plan Patient will remain partial weightbearing of up to 50% of her weight. She will continue to work with physical therapy for gait training. She will also be able to utilize her electric wheelchair when she returns to [facility] [place] which may improve her discharge disposition. Patient will continue Lovenox 40 mg subcutaneous daily 3 weeks, then aspirin 325 mg twice a day for 3 more weeks for DVT prophylaxis. Anticipated that patient will be able to be discharged back to [facility] in 1-2 days once her blood levels are stabilized and able to do well with physical therapy with a walker or a motorized wheelchair. Patient will follow up at [facility] 2 weeks post-operatively for a wound check with a NATHALIE and then against at 6 weeks post-operatively with Dr. Reynolds. Ortho appreciates the hospital team's medical management of this patient. At this time, ortho will sign off. Please call with any questions. Resuscitation Status: Limited Interventions (patient would like resuscitation attempted and temporary intubation) Aline Shaikh PA-C Jul 03, 2017 10:04
[2017-07-03] MEDS ORDERED: 0.9% Sodium Chloride 250 ML ONE ×2 (11:06→14:46)
[2017-07-03] MEDS: Senna-Docusate 8.6-50 mg Tablet PO SCH ×2 (11:38→20:14)
--- NOTE | 2017-07-03 15:16 | NUR ---
Social Work-readiness for discharge: Data:EMR reviewed. Pt is on day 3 of hospitalization for R hip fracture per H&P. Pt is not medically stable anticipate 1-2 more days. PT has been working with pt and recommending SNF placement. 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 [facility] is able to accept tp back when medically stable. Paperwork in the chart. SW will continue to follow. Assessment:pt to benefit from SNF. Plan:Pt to likely discharge back to [facility] when medically stable with Dr. Schroeder to follow. 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 Paperwork in the chart. SW will continue to follow. AD Buck
--- NOTE | 2017-07-03 19:17 | NUR ---
Blood Administration, Urinary Output Patient had low urinary output this shift. At 1400 patient found to have appro. 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 paged and spoken to, no new orders received. Patient has since received one dose of IV diuretic after the first unit of blood products finished, will receive another dose after second unit is completed. Blood products administered to patient as ordered. Patient has tolerated transfusion well, with no reaction symptoms noted. Patient states "I am feeling much better now". However, before second unit had completely finished the patient's IV infiltrated. Unit to be completed per protocol when IV access is restored, care is ongoing. Addendum: 07/03/17 at 1932 by PABLITO GARCIA RN AM Coreg dose withheld per hospitalist orders related to low blood pressure.
[2017-07-03] MEDS: LORazepam 0.5 mg Tablet PO PRN (20:14)
[2017-07-04 04:41] VITALS: BP 146/57; PULSE 59; RESP 18; O2SAT 93
--- NOTE | 2017-07-04 05:18 | NUR ---
Pain/ Urinary Pt. reports pain only with movement. PO Tramdol given as needed. Pt. incontinent of urine during this shift with no retention noted. Skin care and barrier wipes implemented, as pt. has been voiding large amounts in brief.
[2017-07-04 08:05] VITALS: BP 146/65; PULSE 54
[2017-07-04] MEDS: Pantoprazole 20 mg ER24 Tablet PO SCH ×2 (08:07→20:16)
[2017-07-04] MEDS: Senna-Docusate 8.6-50 mg Tablet PO SCH ×2 (08:07→20:16)
[2017-07-04] MEDS: Sodium Chloride LOK Flush 10 mL Syringe IV SCH ×2 (08:07→16:02)
[2017-07-04 08:30] LABS: Mean Corpuscular Hemoglobin 32.2 pg (27.0-35.0); Mean Corpuscular Volume 94.7 fL (81-100)
--- NOTE | 2017-07-04 10:16 | NUR ---
Case Management D: Clinicals faxed to [facility] for [facility] authorization. Addendum: 07/04/17 at 1330 by SURINDER MACHADO SS Authorization for d/c to SNF given by Portia at [facility]. Portia is aware that plan is d/c to [facility]. AD De Los Santos notified of authorization. Addendum: 07/04/17 at 1333 by SURINDER MACHADO SS Ignore previous note. written on wrong pt.
[2017-07-04] MEDS ORDERED: TRAM-14 PO (11:23)
[2017-07-04] MEDS ORDERED: POLY17PO6 PO (11:23)
[2017-07-04] MEDS ORDERED: Acetaminophen PO (11:23)
[2017-07-04] MEDS ORDERED: LORA0.5T PO (11:23)
[2017-07-04] MEDS ORDERED: ENOX40DI8 SUBQ (11:23)
[2017-07-04] MEDS ORDERED: DOCU-41 PO (11:23)
[2017-07-04] MEDS ORDERED: Senna/Docusate Sodium PO (11:23)
[2017-07-04] MEDS ORDERED: FENT1PAT6 TRANSDERM (11:23)
[2017-07-04] MEDS ORDERED: ASPI325T32 PO (11:26)
--- NOTE | 2017-07-04 11:34 | PCM.DIMED ---
Discharge Instructions Date of Service Jul 04, 2017 Dates of Hospitalization Jun 30, 2017 at 02:08 Discharge Diagnosis Discharge Diagnosis # Acute right intertrochanteric hip fracture post ground level fall, present on admission. - Post right hip intramedullary nailing on 06/30/17 # Acute post-op anemia. - Post 2 units of packed red blood cell (PRBC) transfusion on 07/03/17. # Acute kidney injury. Present on admission. Resolved # History of hypertension. Stable. # History of depression, presumed stable # Acute mild hyponatremia. Present on admission. Ongoing Medication Instructions Additional med instructions Continue Lovenox 40 mg subcutaneous daily 3 weeks, then aspirin 325 mg twice a day for 3 more weeks for DVT prophylaxis. Diet Discharge Diet: Low fat, Low Sodium, Heart Healthy Activity Discharge Activity: Other (per physical therapy) Patient Instructions Patient Instructions Partial weight-bearing of up to 50% of her weight. Continue to work with physical therapy for gait training. Able to utilize her electric wheelchair when she returns to [facility] which may improve her discharge disposition. Follow-up plan 1. Follow up at [facility] 2 weeks post-operatively for a wound check with a NATHALIE and then against at 6 weeks post-operatively with Dr. Reynolds. [facility] - [address] [address]. Followup with primary care provider in 7-10 days Follow-up Provider: Xavi Reynolds DO Provider: Kiara Beckman PA-C, Masoud Jul 04, 2017 11:34
--- NOTE | 2017-07-04 11:38 | PCM.DC.MED ---
Discharge Summary Date of Service Jul 04, 2017 Dates of Hospitalization Date of Hospital Admission Jun 30, 2017 at 02:08 Date of Discharge: Jul 04, 2017 Providers: Admitting Physician: Gale Joshi DO Primary Care Physician: Kiara Beckman PA-C Attending Physician: Chemo Castelan Diagnosis at Time of Discharge Diagnosis at Time of Discharge # Acute right intertrochanteric hip fracture post ground level fall, present on admission. - Post right hip intramedullary nailing on 06/30/17 # Acute post-op anemia. - Post 2 units of packed red blood cell (PRBC) transfusion on 07/03/17. # Acute kidney injury. Present on admission. Resolved # History of hypertension. Stable. # History of depression, presumed stable # Acute mild hyponatremia. Present on admission. Ongoing Consultations 1. Ortho (Dr. Reynolds) Procedures XRay, CTs & MRIs Date of Service: 06/30/17 0102 PROCEDURE: X-RAY PELVIS W/LAT HIP (RT) ([id number]) IMPRESSION: Intertrochanteric right femur fracture. Dictated by: Tiffanie Conrad MD, PhD on 06/30/2017 at 8:07 Approved by: Tiffanie Conrad MD, PhD on 06/30/2017 at 8:08 Date of Service: 06/30/17 0121 PROCEDURE: X-RAY CHEST ONE VIEW, PORTABLE ([id number]) IMPRESSION: No acute cardiopulmonary disease process. Dictated by: Tiffanie Conrad MD, PhD on 06/30/2017 at 8:25 Approved by: Tiffanie Conrad MD, PhD on 06/30/2017 at 8:27 Brief History As noted in H&P by Dr. Loera-Bernice: Patient is an 87-year-old female that presented to the emergency room to the emergency department via EMS after falling and hitting her hip. She has a history of hypertension, spinal stenosis. Patient presented to the emergency department after a ground-level fall while getting up to use her bedside commode. She denies hitting her head but admits to falling on her right hip. She was assisted off of the floor. She has a distant history of fractured toe and fractured nose and no known history of osteoporosis. Patient states that she has had previous surgeries and responded poorly to one of the medications used approximately 50 years ago. She states that they "had trouble waking her up" but denies any hyperthermia. Patient is uncertain as to what medication it was. Patient denies headache, sudden change in vision, abdominal pain, numbness, paresthesias Hospital Course # Acute right intertrochanteric hip fracture post ground level fall, present on admission. - Post right hip intramedullary nailing on 06/30/17 - Continue Lovenox 40 mg subcutaneous daily 3 weeks, then aspirin 325 mg twice a day for 3 more weeks for DVT prophylaxis # Acute post-op anemia. - Transfused 2 units PRBC on 07/03/17 given Hgb was less than 7 and patient a little symptomatic with feeling tired # Acute kidney injury. Present on admission. - Resolved with IVF # History of hypertension. Stable. - Continue with home meds # History of depression, presumed stable - Continued home dose Citalopram # Acute mild hyponatremia. Present on admission. Ongoing and stable. Exam Vital Signs (Last) Date Time Temp Pulse Resp B/P Pulse Ox O2 Delivery O2 Flow Rate FiO2 07/04/17 08:05 54 146/65 07/04/17 04:41 36.9 18 93 Room Air 06/30/17 16:00 2 Exam Lungs: CTA bilat CV: RRR Abd: Soft, nt, nd, +bs Test 06/30/17 01:35 06/30/17 02:16 07/02/17 05:10 07/04/17 07:42 Hold Purple Top Tube Received (Received) Hold Blue Top Tube Received (Received) Magnesium Level 2.2mg/dL (1.6-2.6) Total Bilirubin 0.5mg/dL (0.0-1.2) Aspartate Amino Transf (AST/SGOT) 16U/L (0-50) Alanine Aminotransferase (ALT/SGPT) 10U/L (0-32) Alkaline Phosphatase 68U/L (25-165) Total Protein 7.3g/dL (6.4-8.4) Albumin 4.4g/dL (3.4-5.0) Hold [place] Top Tube Received (Received) Urine Color Yellow (YELLOW) Urine Appearance Cloudy (CLEAR,HAZY) Urine pH 6.0 (5.0-8.0) Urine Specific [place] 1.010 (1.003-1.035) Urine Protein Negativemg/dL (NEG,TRACE) Urine Glucose (UA) Negativemg/dL (NEGATIVE) Urine Ketones Negativemg/dL (NEGATIVE) Urine Occult Blood Negative (NEGATIVE) Urine Nitrite Negative (NEGATIVE) Urine Bilirubin Negative (NEGATIVE) Urine Urobilinogen Normalmg/dL (NORMAL) Urine Leukocyte Esterase Small (NEGATIVE) Urine RBC 0-2/hpf (0-2) Urine WBC 0-5/hpf (0-5) Urine Epithelial Cells Occasional/hpf (NONE-MOD) Urine Crystals None seen (NONE SEEN) Urine Bacteria Many/hpf (NONE-FEW) Urine Hyaline Casts None/lpf (NONE) Urine Granular Casts None seen (NONE SEEN) Urine Waxy Casts None seen (NONE SEEN) Urine Red Blood Cell Casts None seen (NONE SEEN) Urine White Blood Cell Casts None seen (NONE SEEN) Urine Mucus None seen (None Seen) Urine Trichomonas None seen (NONE SEEN) Urine Yeast None (NONE SEEN) Urinalysis Comment None Urine Culture Reflexed Indicated Neutrophils (%) (Auto) 64.6% (40-74) Lymphocytes (%) (Auto) 17.8% (14-46) Monocytes (%) (Auto) 16.1% (4-12) Eosinophils (%) (Auto) 1.1% (0-5) Basophils (%) (Auto) 0.1% (0-3) White Blood Count 6.7th/mm3 (3.8-10.1) Red Blood Count 2.64mil/mm3 (3.90-5.20) Hemoglobin 8.5g/dL (12.0-15.6) Hematocrit 25.0% (35.0-46.0) Mean Corpuscular Volume 94.7fL (81-100) Mean Corpuscular Hemoglobin 32.2pg (27.0-35.0) Mean Corpuscular Hemoglobin Concent 34.0% (32.0-37.0) Red Cell Distribution Width 14.9% (12.3-15.4) Platelet Count 165bil/L (150-400) Sodium Level 131mEq/L (134-144) Potassium Level 4.3mEq/L (3.5-5.2) Chloride Level 95mEq/L (97-108) Carbon Dioxide Level 24mmol/L (18-29) Blood Urea Nitrogen 23mg/dL (8-27) Creatinine 0.78mg/dL (0.57-1.00) Estimat Glomerular Filtration Rate 100mL/min (>59) Glucose Level 102mg/dL (60-99) Calcium Level 8.0mg/dL (8.5-10.1) Discharge Medications Discharge Medications ([Senna/Docusate Sodium]) 1 TABLET TABLET 1 TABLET PO BID Prescribed by: CHEMO CASTELAN MD Allopurinol (Allopurinol) 100 Mg Tablet 100 MG PO DAILY (Reported) Amlodipine (Norvasc) 5 Mg Tablet 2.5 MG PO BID Prescribed by: JELANI EVERETT DO Aspirin (Aspirin) 325 Mg Tablet 325 MG PO BID START TAKING IN 20 DAYS, AFTER FINISHING THE COURSE OF LOVENOX, FOR TOTAL OF 3 WEEKS Prescribed by: CHEMO CASTELAN MD Carvedilol (Coreg) 12.5 Mg Tablet 12.5 MG PO BID Prescribed by: JELANI EVERETT DO Citalopram (Citalopram) 20 Mg Tablet 20 MG PO AM (Reported) Docusate Sodium (Colace) 100 Mg Capsule 100 MG PO BID Prescribed by: CHEMO CASTELAN MD Enoxaparin Sodium (Enoxaparin Sodium) 40 Mg/0.4 Ml Syringe 40 MG SUBQ Q24 Prescribed by: CHEMO CASTELAN MD Fentanyl 12.5 mcg/hr Patch (Fentanyl 12.5 mcg/hr Patch) 1 Each Patch.td72 1 PATCH TRANSDERM Q3D Prescribed by: CHEMO CASTELAN MD Furosemide (Lasix) 40 Mg Tablet 40 MG PO DAILY Prescribed by: JELANI EVERETT DO Losartan Potassium (Cozaar) 25 Mg Tablet 50 MG PO BID Prescribed by: JELANI EVERETT DO Multivitamin (Multi Vitamin Daily) 1 Each Tablet 1 EACH PO DAILY (Reported) Pantoprazole DR (Protonix) 20 Mg Tablet 20 MG PO BID Prescribed by: JELANI EVERETT DO Potassium Chloride ER (Klor-Con M20) 20 Meq Tabsr 20 MEQ PO DAILY Prescribed by: JELANI EVERETT DO Ubidecarenone (Co Q10) 100 Mg Capsule 100 MG PO BID (Reported) As needed ([Acetaminophen]) 325 MG TABLET 975 MG PO Q6H PRN PRN For Pain Prescribed by: CHEMO CASTELAN MD Lorazepam (Lorazepam) 0.5 Mg Tablet 0.5 MG PO Q6 PRN PRN For Anxiety Prescribed by: CHEMO CASTELAN MD Polyethylene Glycol 3350 (Miralax) 17 Gm Powd.pack 17 GM PO DAILY PRN PRN For Constipation Prescribed by: CHEMO CASTELAN MD Tramadol (Ultram) 50 Mg Tablet 50 MG PO Q4H PRN PRN For Mild Pain Prescribed by: CHEMO CASTELAN MD Miscellaneous Medications Calcium Carbonate/Vitamin D3 (Calcium 500 + Vit D 200 Tablet) 1 Each Tablet 1 EACH PO (Reported) [place]-3/Dha/Epa/Fish Oil (Fish Oil 1,000 mg Softgel) 1 Each Capsule 1 EACH PO ( Reported) Additional med instructions Continue Lovenox 40 mg subcutaneous daily 3 weeks, then aspirin 325 mg twice a day for 3 more weeks for DVT prophylaxis. Followup Plan Disposition: [facility]. SNF Follow-up plan 1. Follow up at [facility] 2 weeks post-operatively for a wound check with a PA and then against at 6 weeks post-operatively with Dr. Reynolds. [address] [address]. Followup with primary care provider in 7-10 days Discharge Diet: Low fat, Low Sodium, Heart Healthy Discharge Activity: Other (per physical therapy) Patient Instructions Partial weight-bearing of up to 50% of her weight. Continue to work with physical therapy for gait training. Able to utilize her electric wheelchair when she returns to [facility] which may improve her discharge disposition. Follow-up Provider: Xavi Reynolds DO Provider: Kiraa Beckman PA-C Time spent 35 min copies to: Kiara Beckman PA-C; Xavi Reynolds Masoud Jul 04, 2017 11:37
[2017-07-04 12:50] VITALS: BP 135/66; PULSE 55; RESP 18; O2SAT 95
--- NOTE | 2017-07-04 15:26 | NUR ---
Case management: [facility] authorization D: Clinicals faxed this morning. Call this afternoon from [facility]. Anthony METZ unable to look at clinicals today. Authorization will have to be pursued tomorrow. Magali DUONG notifed.
--- NOTE | 2017-07-04 15:33 | NUR ---
Social Work-readiness for discharge: Data: EMR reviewed. Pt is on day 4 of hospitalization for R hip fracture per H&P. Pt is medically stable, ready to d/c today. [facility] unable to review pt's clinicals today, authorization pending. [facility] to review tomorrow. [facility] updated, orders and packet have been faxed in preparation for discharge. Pt notified at bedside of d/c tomorrow. T/C to pt's son Bill regarding discharge plan, updated and agreeable to plan. [facility]. Pt may require BLS transport tomorrow, to review this with MD in morning rounds. SW will continue to follow. Assessment: pt to benefit from SNF. Plan: Pt to likely discharge back to [facility] tomorrow with Dr. Schroeder to follow pending [facility] authorization and review. Paperwork in the chart. Pt may require BLS transport. SW will continue to follow. AD Sosa
--- NOTE | 2017-07-04 16:16 | NUR ---
Case Management: SNF authorization D: Return call from [facility] with [place], she has now been able to review chart, and d/c to SNF has been authorized. She is aware that per Previous message from Ge[facility], d/c was placed on hold until tomorrow pending SNF authorization. I have updated Magali that d/c to SNF has now been authorized.
--- NOTE | 2017-07-04 16:20 | NUR ---
Social Work- Update Notified that [facility] authorized pt at 4:15 pm. Facility is not able to accept pt at this hour, SW will continue to follow and d/c patient tomorrow morning. Shelli Huang MSW
--- NOTE | 2017-07-04 16:42 | PCM.PNMED ---
Subjective Date of Service Jul 04, 2017 Subjective Denies any new issues/complaints o Exam Vital Signs Vital Sign - Last Date Time Temp Pulse Resp B/P Pulse Ox O2 Delivery O2 Flow Rate FiO2 07/04/17 12:50 36.8 55 18 135/66 95 Room Air 06/30/17 16:00 2 Intake and Output 07/03/17 07/03/17 07/04/17 Cumulative From/Thru 15:00 23:00 07:00 06/30/17 00:59 - 07/04/17 05:16 Intake Total 200 ml 1875 ml 200 ml 8728 ml Output Total 0 ml 3830 ml Balance 200 ml 1875 ml 200 ml 4898 ml Intake Oral 200 ml 900 ml 200 ml 4357 ml IV Total 375 ml 3771 ml Packed Cells 600 ml 600 ml Output Urine Total 0 ml 3650 ml Estimated Blood Loss 180 ml # Voids 1 3 4 # Bowel Movements 0 0 0 0 Exam General: Alert, Cooperative, No Acute Distress Head: Normal Eyes: Scleral Anicteric Nose: Mucous Membr Moist/[place] Mouth: Mucous Membr Moist/[place] Neck: Supple Chest & Lungs: Chest Wall Normal, Clear to auscultation bilat Cardiovascular: Regular Rate/Rhythm Pulses: NL carotid, radial Abdomen: Non-tender, Non-distended, Normoactive bowel tones, Soft Extremities: No cyanosis/clubbing/edema bilat Neurological: Grossly Neurologically Intact, Normal Speech IVs and Medications Medications Reviewed: Medications were reviewed in detail Lab and Diagnostics Result Diagram: 07/04/1742 07/04/17 0742 X-Rays, CTs and MRIs Date of Service: 06/30/17 0102 PROCEDURE: X-RAY PELVIS W/LAT HIP (RT) ([id number]) IMPRESSION: Intertrochanteric right femur fracture. Dictated by: Tiffanie Conrad MD, PhD on 06/30/2017 at 8:07 Approved by: Tiffanie Conrad MD, PhD on 06/30/2017 at 8:08 Date of Service: 06/30/17 0121 PROCEDURE: X-RAY CHEST ONE VIEW, PORTABLE ([id number]) IMPRESSION: No acute cardiopulmonary disease process. Dictated by: Tiffanie Conrad MD, PhD on 06/30/2017 at 8:25 Approved by: Tiffanie Conrad MD, PhD on 06/30/2017 at 8:27 Assessment & Plan # Acute right intertrochanteric hip fracture post ground level fall, present on admission. - Post right hip intramedullary nailing on 06/30/17 - Continue Lovenox 40 mg subcutaneous daily 3 weeks, then aspirin 325 mg twice a day for 3 more weeks for DVT prophylaxis # Acute post-op anemia. - Transfused 2 units PRBC on 07/03/17 given Hgb was less than 7 and patient a little symptomatic with feeling tired # Acute kidney injury. Present on admission. - Resolved with IVF # History of hypertension. Stable. - Continue with home meds # History of depression, presumed stable - Continued home dose Citalopram # Acute mild hyponatremia. Present on admission. Ongoing and stable. Dispo: Discharge to SNF today cancelled due to reportedly her insurance company failing to authorize her transfer to SNF in time. Plan for d/c to SNF in am GI Prophylaxis: Not indicated VTE Mechanical Devices: Intermittant Pneumatic CD Resuscitation Status: Limited Interventions (patient would like resuscitation attempted and temporary intubation) Chemo Lockwood Jul 04, 2017 16:42
--- NOTE | 2017-07-04 16:44 | NUR ---
Activity Patient sat at the edge of the bed this afternoon with PT and myself. She tolerated this well but did report that sitting for too long starts to hurt her back. She was able to scoot herself to the edge of the bed with minimum to moderate assist and sat for 10 minutes. The patient denied an increase in pain. Will continue to offer and encourage sitting up for meals in the chair.
[2017-07-04] MEDS: Polyethylene Glycol (PEG) 17 Gm Powder PO PRN (16:51)
[2017-07-04] MEDS: Alum-Mag Hydrox-Simeth 30 mL Suspension PO PRN (16:51)
[2017-07-04 21:34] VITALS: BP 155/69; PULSE 58; RESP 18; O2SAT 94
[2017-07-04] MEDS: LORazepam 0.5 mg Tablet PO PRN (21:43)
[2017-07-05] MEDS: Sodium Chloride LOK Flush 10 mL Syringe IV SCH ×2 (05:22→08:43)
[2017-07-05 05:32] LABS: Mean Corpuscular Hemoglobin 32.7 pg (27.0-35.0); Mean Corpuscular Volume 96.1 fL (81-100)
--- NOTE | 2017-07-05 05:43 | NUR ---
Activity Patient c/o pain at start and near end of shift. Difficult time getting to sleep but eventually was able to after a dose of PRN Ativan. Unable to get out of bed, incontinent of urine. One person assist with bed mobility. Bed in low position, call light within reach, intentional rounding.
[2017-07-05 06:13] VITALS: BP 139/61; PULSE 55; RESP 16; O2SAT 98
[2017-07-05] MEDS: Pantoprazole 20 mg ER24 Tablet PO SCH (08:44)
[2017-07-05] MEDS: Senna-Docusate 8.6-50 mg Tablet PO SCH (08:45)
[2017-07-05] MEDS: Alum-Mag Hydrox-Simeth 30 mL Suspension PO PRN (08:50)
[2017-07-05 08:51] VITALS: BP 144/66; PULSE 60
--- NOTE | 2017-07-05 08:54 | NUR ---
Social Work: Discharge Data: EMR reviewed. Pt is on day 5 of hospitalization. Pt is medically ready for discharge, [place] authorization has been obtained. T/C to Martha, admissions at [facility], is agreeable to accepting pt back today. order received for BLS transport as pt is unable to tolerate sitting for more than 8 minutes due to spinal stenosis. T/C to [facility] to schedule BLS transport. PCS form complete. T/C to pt's son Jude Richardson regarding discharge today, explained that insurance coverage for BLS transport is not guaranteed. Bill stated understanding and is agreeable. SW met with pt at bedside regarding discharge back to [facility], pt is agreeable to plan. Explained that insurance coverage for BLS transport is not guaranteed. Pt stated understanding and is agreeable. Pt to return to [facility] via BLS transport at 11 am. RN, pt/family, UC, and [facility] all updated and agreeable to plan. Paperwork in chart . Assessment: Pt for whom skilled therapy is medically indicated who also resides at [facility] LT Plan: Pt to d/c to [facility] via BLS at 11 am. PCS form complete. RN, pt/family, UC, and [facility] all updated and agreeable to plan. Paperwork in chart . AD Sosa
--- NOTE | 2017-07-05 11:25 | NUR ---
Discharge Patient discharged to [facility] in stable condition. VSS. Dressing's changed with [place] dressing. Reported called to [place]. Staff gathered all patient belongings. Patient transferred from bed to stretcher via slider board. Patient denied pain and nausea at this time. Patient tolerated transfer. BLS transferred patient out via stretcher.
== END 2017-07-05 11:10 | DRG 481 ==
LOC: SED 00:56 → OSC 02:08
PROVIDERS: ADMIT Internal Medicine; ATTEND Internal Medicine
PROC: 0QS636Z Reposition Right Upper Femur with Intramedullary Internal Fixation Device, Percutaneous Approach (ICD-10-PCS; principal; 2017-06-30 13:00)
PROC: 30233N1 Transfusion of Nonautologous Red Blood Cells into Peripheral Vein, Percutaneous Approach (ICD-10-PCS; 2017-07-03)
DX: S72.141A Displaced intertrochanteric fracture of right femur, initial encounter for closed fracture (principal); E87.1 Hypo-osmolality and hyponatremia; N17.9 Acute kidney failure, unspecified; D62 Acute posthemorrhagic anemia; I10 Essential (primary) hypertension; W18.11XA Fall from or off toilet without subsequent striking against object, initial encounter; Y93.E8 Activity, other personal hygiene; Y92.122 Bedroom in nursing home as the place of occurrence of the external cause; Z66 Do not resuscitate; Z87.891 Personal history of nicotine dependence; F32.9 Major depressive disorder, single episode, unspecified; G89.29 Other chronic pain